=== PATIENT | male | born 1950 | race Caucasian/White ===

== ENCOUNTER 2017-04-24 18:45 | Inpatient (IN) | payer MEDICARE, MEDICAID ==
[~2017-04-24] VITALS: Ht 180.3 cm; Wt 54.4 kg
[2017-04-24] MEDS ORDERED: IV NORMAL SALINE 1000 ML BAG IV ONE (19:00)
--- NOTE | 2017-04-24 19:06 | NUR ---
Pt states takes medications for AIDS but he can not recall the names at this time.
--- NOTE | 2017-04-24 19:08 | NUR ---
Received ALOX4 with pt stating that he had sudden onset of SOB and brought in by paramedics on Non rebreather, placed on CR monitor, sl in lt ac 20g site without redness or swelling at this time VSS with pt very tachypenic. EKG complete at bedside, cxr at bedside as well.
--- NOTE | 2017-04-24 19:10 | NUR ---
REPORT TAKEN FROM DAY SHIFT RN. ASSUMING CARE AT THIS TIME.
[2017-04-24 19:20] LABS: ABG BASE EXCESS -0.7 mmol/L; ABG HCO3 21.4 mmol/L; ABG PCO2 25.5 mmHg (35.0-45.0); ABG PH 7.541 (7.350-7.450); ABG PO2 86.4 mmHg (75.0-100.0); ABG SITE RIGHT RADIAL; ABG TOTAL HEMOGLOBIN 7.8 G/dL (13.5-18.0); COHb 1.6 % (0.5-1.5); MetHb 0.4 % (0.0-1.5); O2Hb 95.1 % (94.0-97.0); VENT MODE R/A
[2017-04-24 19:42] LABS: BASOPHILS # (AUTO) 0.1 K/uL (0.0-8.0); BASOPHILS % (AUTO) 0.9 % (0.0-2.0); CREATININE 1.4 mg/dL (0.6-1.3); EOSINOPHILS % (AUTO) 0.5 % (0.0-7.0); HEMOGLOBIN 7.9 g/dL (12.5-16.3); LYMPHOCYTES # (AUTO) 2.3 K/uL (20.0-40.0); LYMPHOCYTES % (AUTO) 25.6 % (20.5-51.5); MEAN CORPUSCULAR HEMOGLOBIN 19.4 uug (23.8-33.4); MEAN CORPUSCULAR HGB CONC 32 g/dL (32.5-36.3); MEAN CORPUSCULAR VOLUME 61.2 fL (73.0-96.2); MONOCYTES # (AUTO) 0.7 K/uL (2.0-10.0); MONOCYTES % (AUTO) 7.9 % (0.0-11.0); NEUTROPHILS # (AUTO) 5.9 K/uL (1.8-8.9); NEUTROPHILS % (AUTO) 65.1 % (38.5-71.5); PLATELET COUNT (AUTO) 497 K/uL (152-348); RED BLOOD CELL COUNT(AUTO) 4.09 MIL/uL (4.06-5.63)
[2017-04-24 19:55] LABS: BILIRUBIN,DIRECT 0.1 mg/dL (0.0-0.2); BILIRUBIN,TOTAL 0.6 mg/dL (0.2-1.0)
--- NOTE | 2017-04-24 20:32 | NUR ---
PT RESTING IN A POSITION OF COMFORT. SO SIGNS OF DISTRESS NOTES. VSS.
[2017-04-24 21:16] LABS: *BILIRUBIN,URIN NEGATIVE (NEGATIVE); *BLOOD, URINE 1+ (NEGATIVE); *CLARITY,URINE SLIGHTLY CLOUDY (CLEAR); *COLOR,URINE YELLOW (YELLOW); *KETONES,URINE 1+ (NEGATIVE); *PROTEIN,URINE 1+ (NEGATIVE); *UROBILINOGEN,URINE 0.2 E.U./dl (NORMAL); LEUKOCYTE ESTERASE ,URINE 1+ (NEGATIVE); NITRITE, URINE NEGATIVE (NEGATIVE); UGLUCOSE NEGATIVE (NEGATIVE)
[2017-04-24 21:29] LABS: BACTERIA,URINE FEW /HPF (NONE SEEN); SQUAMOUS EPITHELIAL CELL,UR FEW /HPF (NONE SEEN); WBC,URINE 20-50 /HPF (0-3)
[2017-04-24] MEDS ORDERED: LORAZEPAM 0.5 MG TABLET PO ONE (21:30)
[2017-04-24] MEDS ORDERED: CEFTRIAXONE 1 G in IV DEXTROSE 5% 50 ML IV ONE (21:45)
--- NOTE | 2017-04-24 21:48 | NUR ---
PT USING URINAL. NO SIGNS OF DISTRESS AT THIS TIME.
[2017-04-24] MEDS ORDERED: CEFTRIAXONE 1 G VIAL ONE (22:15)
[2017-04-24] MEDS ORDERED: LORAZEPAM 1 MG TABLET ONE (22:15)
--- NOTE | 2017-04-24 22:29 | NUR ---
REPORT GIVEN TO ALONA WALTER.
--- NOTE | 2017-04-24 22:59 | NUR ---
Pt. admitted to tele, under care of Dr. Menjivar Belongs List completed
--- NOTE | 2017-04-24 23:00 | NUR ---
NEW ADMIT FROM ER, ALERT AND ORIENTED WITH CONFUSION, DENIES PAIN OR ANY DISCOMFORT. NO RESP DISTRESS AT PRESENT. SAFETY MEASURES IN PLACE, CALL LIGHT WITHIN PATIENT'S REACH. WILL CONTINUE TO MONITOR PATIENT
[2017-04-24 23:35] VITALS: BP 119/79
[2017-04-25] VITALS (13 sets, daily range): BP systolic 91–120; BP diastolic 55–74
[2017-04-25] MEDS ORDERED: Z GUARD REMEDY PASTE 57 GM TUBE TOP PRN
[2017-04-25] MEDS ORDERED: ACETAMINOPHEN 325 MG TABLET PO PRN
[2017-04-25] MEDS ORDERED: ONDANSETRON 4 MG/2 ML VIAL IV PRN
[2017-04-25] MEDS: VANCOMYCIN IV 1,000 MG in IV DEXTROSE 5% 250 ML IV ONE (00:15)
[2017-04-25] MEDS: IV NS 1000 ML 1,000 ML IV PRN (00:41)
[2017-04-25] MEDS ORDERED: VANCOMYCIN 1000 MG VIAL ONE (01:19)
--- NOTE | 2017-04-25 06:27 | NUR ---
PATIENT SLEPT ON AND OFF THROUGHOUT THE NIGHT. CONTINUES TO BE HAVE EPISODES OF CONFUSION PULLED HIS IV OUT, NEW IV WAS STARTED. HE DENIES PAIN OR ANY DISCOMFORT. NO RESP DISTRESS OR SOB ON THIS SHIFT. SAFETY MEASURES IN PLACE, CALL LIGHT WITHIN PATIENT'S REACH
[2017-04-25 06:35] LABS: BASOPHILS # (AUTO) 0.1 K/uL (0.0-8.0); EOSINOPHILS # (AUTO) 0.1 K/uL (0.0-0.7); HEMATOCRIT 23.1 % (36.7-47.1); LYMPHOCYTES # (AUTO) 1.9 K/uL (20.0-40.0); MEAN CORPUSCULAR HGB CONC 31 g/dL (32.5-36.3); NEUTROPHILS # (AUTO) 4.3 K/uL (1.8-8.9); WHITE BLOOD COUNT (AUTO) 7.4 K/uL (3.6-10.2)
[2017-04-25 06:36] LABS: BASOPHILS % (AUTO) 0.8 % (0.0-2.0); EOSINOPHILS % (AUTO) 1.8 % (0.0-7.0); LYMPHOCYTES % (AUTO) 25.6 % (20.5-51.5); MEAN CORPUSCULAR HEMOGLOBIN 19.2 uug (23.8-33.4); MEAN CORPUSCULAR VOLUME 61.7 fL (73.0-96.2); MONOCYTES % (AUTO) 13.6 % (0.0-11.0); NEUTROPHILS % (AUTO) 58.2 % (38.5-71.5); PLATELET COUNT (AUTO) 411 K/uL (152-348); RED BLOOD CELL COUNT(AUTO) 3.74 MIL/uL (4.06-5.63)
[2017-04-25 06:53] LABS: BILIRUBIN,TOTAL 0.3 mg/dL (0.2-1.0); CREATININE 1.1 mg/dL (0.6-1.3); MAGNESIUM 2.1 mg/dL (1.8-2.4); PHOSPHOROUS 3.9 mg/dL (2.5-4.9); POTASSIUM 3.9 mmol/L (3.5-5.1); TOTAL PROTEIN, SERUM 7.1 g/dL (6.4-8.2)
[2017-04-25 06:55] LABS: HEMOGLOBIN 7.2 g/dL (12.5-16.3)
[2017-04-25 07:03] LABS: THYROID STIMULATING HORMONE 4.257 mIU/mL (0.358-3.740)
[2017-04-25 07:50] LABS: BAND % (MANUAL) 2 % (0-10); EOSINOPHILS % (MANUAL) 3 % (0-8); LYMPHOCYTES % (MANUAL) 24 % (20-40); MONOCYTES % (MANUAL) 13 % (2-10); NEUTROPHILS % (MANUAL) 58 % (42-75)
--- NOTE | 2017-04-25 15:21 | NUR ---
Clinical Pharmacy Note: Vancomycin Pharmacy to Dose Subjective: To start vancomycin in this 67 y/o male for indication of PNA Objective: weight 54 kg height 180cm BUN 23 Scr 1.1 wbc 7.4 temp 98.9 vanco 1gm given in ER on 04/25 @ 0015 Assessment/Plan As renal fxn appears ok, will start regimen of vanco 750mg q19hrs for estimated trough of 16.19. First dose tonight at 2100. Will check trough before 4th scheduled dose (not ordered yet). Will monitor and dose per level if renal function were to become unstable. Will follow
[2017-04-25] MEDS ORDERED: DEXTROSE 50% 50 ML DISP.SYRIN IV PRN (16:15)
[2017-04-25] MEDS: INSULIN REGULAR, HUMAN 300 UNIT/3 ML VIAL SQ PRN (17:28)
[2017-04-25] MEDS: BLOOD SUGAR DIAGNOSTIC 1 EACH STRIP VI SCH ×2 (17:31→20:31)
--- NOTE | 2017-04-25 19:09 | NUR ---
pt A/Ox4. Denies any pain or discomfort. Denies any SOB. Lung sound clear. pt was given PRBC with no complications.
--- NOTE | 2017-04-25 20:00 | NUR ---
PATIENT IS AWAKE IN BED, HE DENIES PAIN OR ANY DISCOMFORT. NO RESP DISTRESS AT PRESENT. ALL SAFETY MEASURES IN PLACE, CALL LIGHT WITHIN PATIENT REACH. WILL CONTINUE TO MONITOR PATIENT
[2017-04-25] MEDS: CEFTRIAXONE 1 G in IV NORMAL SALINE 50 ML IV SCH (20:22)
[2017-04-25] MEDS: TAMSULOSIN HCL 0.4 MG CAP.SR.24H PO SCH (20:22)
[2017-04-25] MEDS ORDERED: VANCOMYCIN IV 750 MG in IV DEXTROSE 5% 250 ML IV SCH (21:00)
[2017-04-26] VITALS: BP 95/56
[2017-04-26] MEDS: IV NS 1000 ML 1,000 ML IV PRN ×2 (01:47→22:43)
[2017-04-26 04:00] VITALS: BP 104/69
--- NOTE | 2017-04-26 05:47 | NUR ---
PATIENT SLEPT WELL MOST OF THE NIGHT, ONE PRN TYLENOL WAS GIVEN WITH EFFECT ON THIS SHIFT. NO FURTHER COMPLAINTS OF PAIN. NO RESP DISTRESS ON THIS SHIFT. SAFETY MEASURES MAINTAINED, CALL LIGHT WITHIN PATIENT'S REACH
[2017-04-26 06:13] LABS: CREATININE 0.9 mg/dL (0.6-1.3); POTASSIUM 3.9 mmol/L (3.5-5.1)
[2017-04-26 06:32] LABS: BASOPHILS # (AUTO) 0.1 K/uL (0.0-8.0); BASOPHILS % (AUTO) 1.2 % (0.0-2.0); EOSINOPHILS # (AUTO) 0.2 K/uL (0.0-0.7); EOSINOPHILS % (AUTO) 2.4 % (0.0-7.0); HEMATOCRIT 26.8 % (36.7-47.1); HEMOGLOBIN 8.7 g/dL (12.5-16.3); LYMPHOCYTES # (AUTO) 1.8 K/uL (20.0-40.0); MEAN CORPUSCULAR HEMOGLOBIN 20.7 uug (23.8-33.4); MEAN CORPUSCULAR HGB CONC 32 g/dL (32.5-36.3); MEAN CORPUSCULAR VOLUME 63.9 fL (73.0-96.2); MONOCYTES # (AUTO) 0.9 K/uL (2.0-10.0); MONOCYTES % (AUTO) 13.2 % (0.0-11.0); NEUTROPHILS # (AUTO) 3.8 K/uL (1.8-8.9); NEUTROPHILS % (AUTO) 56.2 % (38.5-71.5); PLATELET COUNT (AUTO) 384 K/uL (152-348); RED BLOOD CELL COUNT(AUTO) 4.19 MIL/uL (4.06-5.63); WHITE BLOOD COUNT (AUTO) 6.8 K/uL (3.6-10.2)
[2017-04-26] MEDS: BLOOD SUGAR DIAGNOSTIC 1 EACH STRIP VI SCH ×4 (06:43→20:35)
[2017-04-26 08:18] LABS: EOSINOPHILS % (MANUAL) 3 % (0-8); LYMPHOCYTES % (MANUAL) 22 % (20-40); MONOCYTES % (MANUAL) 17 % (2-10); NEUTROPHILS % (MANUAL) 58 % (42-75)
[2017-04-26] MEDS ORDERED: ALPR1TAB7 PO (10:30)
[2017-04-26 11:14] VITALS: BP 98/64
--- NOTE | 2017-04-26 14:58 | NUR ---
Clinical Pharmacy Note: Vancomycin Pharmacy to Dose Subjective: To continue vancomycin in this 67 y/o male for indication of PNA Objective: weight 54 kg height 180cm BUN 19 Scr 0.9 wbc 6.8 temp 98.4 Assessment/Plan Since renal function is improved, will change order to 1 gram IV every 18hrs(first dose today at 1600).Will check trough before 4th scheduled dose (not ordered yet) for expected trough around 16. Will monitor and dose per level if renal function were to become unstable. Will follow
[2017-04-26 15:03] VITALS: BP 110/68
[2017-04-26] MEDS ORDERED: ALPR0.5T8 PO (15:25)
[2017-04-26] MEDS ORDERED: QUET100T PO (15:27)
[2017-04-26] MEDS: VANCOMYCIN IV 1 G in PREMIXED 0 EACH IV SCH (16:18)
[2017-04-26] MEDS: ALPRAZOLAM 0.5 MG TABLET PO PRN (16:22)
--- NOTE | 2017-04-26 17:00 | NUR ---
Xanax effective. pt calm and relax.
--- NOTE | 2017-04-26 19:50 | NUR ---
NSG: PT RECEIVED A/O X 4. NO ACUTE DISTRESS NOTED. PT IS HYPERVERBAL BUT COOPERATIVE AND PLEASANT. DENIES DISCOMFORT. CONT TO MONITOR.
[2017-04-26 20:00] VITALS: BP 115/76
[2017-04-26] MEDS: CEFTRIAXONE 1 G in IV NORMAL SALINE 50 ML IV SCH (20:27)
[2017-04-26] MEDS: TAMSULOSIN HCL 0.4 MG CAP.SR.24H PO SCH (20:27)
[2017-04-26] MEDS ORDERED: QUETIAPINE FUMARATE 100 MG TABLET PO SCH (21:00)
[2017-04-27] VITALS: BP 120/75
--- NOTE | 2017-04-27 01:59 | NUR ---
vasquezg: pt endorsed to JOSE ANGEL howell.
[2017-04-27 05:00] VITALS: BP 112/75
[2017-04-27 05:32] LABS: CORTISOL 15.4 ug/dL (.)
--- NOTE | 2017-04-27 05:55 | NUR ---
No changes t/o shift. Slept most of the time. No c/o pain. No acute distress noted. IVF infusing. Safety and comfort measures maintained t/o shift.
[2017-04-27 06:31] LABS: BASOPHILS % (AUTO) 0.8 % (0.0-2.0); EOSINOPHILS # (AUTO) 0.1 K/uL (0.0-0.7); EOSINOPHILS % (AUTO) 1.8 % (0.0-7.0); HEMATOCRIT 29.1 % (36.7-47.1); HEMOGLOBIN 9.2 g/dL (12.5-16.3); LYMPHOCYTES # (AUTO) 1.7 K/uL (20.0-40.0); LYMPHOCYTES % (AUTO) 27.4 % (20.5-51.5); MEAN CORPUSCULAR HGB CONC 31 g/dL (32.5-36.3); MEAN CORPUSCULAR VOLUME 63.7 fL (73.0-96.2); MONOCYTES % (AUTO) 15.3 % (0.0-11.0); NEUTROPHILS # (AUTO) 3.5 K/uL (1.8-8.9); NEUTROPHILS % (AUTO) 54.7 % (38.5-71.5); PLATELET COUNT (AUTO) 396 K/uL (152-348); RED BLOOD CELL COUNT(AUTO) 4.58 MIL/uL (4.06-5.63); WHITE BLOOD COUNT (AUTO) 6.4 K/uL (3.6-10.2)
[2017-04-27] MEDS: BLOOD SUGAR DIAGNOSTIC 1 EACH STRIP VI SCH ×3 (06:44→16:56)
[2017-04-27 06:52] LABS: MAGNESIUM 2.1 mg/dL (1.8-2.4); POTASSIUM 4.1 mmol/L (3.5-5.1)
[2017-04-27 08:43] LABS: BAND % (MANUAL) 2 % (0-10); EOSINOPHILS % (MANUAL) 1 % (0-8); LYMPHOCYTES % (MANUAL) 29 % (20-40); MONOCYTES % (MANUAL) 6 % (2-10); NEUTROPHILS % (MANUAL) 62 % (42-75)
[2017-04-27] MEDS: VANCOMYCIN IV 1 G in PREMIXED 0 EACH IV SCH (10:40)
[2017-04-27] MEDS: INSULIN REGULAR, HUMAN 300 UNIT/3 ML VIAL SQ PRN (11:44)
[2017-04-27 11:51] VITALS: BP 101/63
[2017-04-27] MEDS: ALPRAZOLAM 0.5 MG TABLET PO PRN (12:20)
--- NOTE | 2017-04-27 12:20 | NUR ---
PT COMPLAINED OF MILD ANXIETY. GIVEN ALPRAZOLAM PER ORDER.
--- NOTE | 2017-04-27 12:38 | NUR ---
Clinical Pharmacy Note: Vancomycin Pharmacy to Dose Subjective: To continue vancomycin in this 67 y/o male for indication of PNA Objective: weight 54 kg height 180cm BUN 13 Scr 1.0 wbc 6.4 temp 98 Assessment/Plan Will continue same dose of Vancomycin 1 gram IV every 18hrs(third dose tomorrow at 0400).Will check trough before 4th scheduled dose (not ordered yet) for expected trough around 16. Will monitor and dose per level if renal function were to become unstable. Will follow
[2017-04-27] MEDS ORDERED: BACITRACIN/POLYMYXIN B OINT 15 GM TUBE TOP SCH (14:00)
--- NOTE | 2017-04-27 14:01 | NUR ---
WOUND CARE CONSULT: PT PRESENTS WITH LEFT BUTTOCK OPEN BLISTER, PRESENT ON ADMISSION. RECOMMENDATIONS MADE FOR WOUND CARE AFTER DISCUSSING WITH GILLIAN BENAVIDEZ NP. ALL SKIN PROTECTION AND WOUND RECOMMENDATIONS DISCUSSED WITH NURSING STAFF. PT IS INDEPENDENT WITH BED MOBILITY AND CONTINENT FOR THE MOST PART. WILL SEE PRN. NIEVES IN AGREEMENT WITH PLAN OF CARE. Addendum: 04/27/17 at 1403 by LOLA ROCKWELL RN Amended: Links added.
[2017-04-27 15:43] VITALS: BP 98/68
--- NOTE | 2017-04-27 17:30 | NUR ---
dISCHARGE INSTRUCTIONS GIVEN TO PT. pT VERBALIZED UNDERSTANDING. pT IS IN NO ACUTE DISTRESS. iv D/C. vACCINES TO BE F/U WITH pmd.
[2017-04-28 05:06] LABS: *BASOS 0 % (Not Estab.); *EOS 2 % (Not Estab.); *EOS ABSOLUTE 0.1 x10E3/uL (0.0-0.4); *HCT 27.5 % (37.5-51.0); *HGB 8.7 g/dL (13.0-17.7); *IMMATURE GRANULOCYTES 0 % (Not Estab.); *LYMPHOCYTES 34 % (Not Estab.); *LYMPHOCYTES ABSOLUTE 1.6 x10E3/uL (0.7-3.1); *MCH 20.2 pg (26.6-33.0); *MCHC 31.6 g/dL (31.5-35.7); *MCV 64 fL (79-97); *MONOCYTES 13 % (Not Estab.); *MONOCYTES ABSOLUTE 0.6 x10E3/uL (0.1-0.9); *NEUTROPHILS 51 % (Not Estab.); *NEUTROPHILS ABSOLUTE 2.5 x10E3/uL (1.4-7.0); *PLT 362 x10E3/uL (150-379); *RBC 4.31 x10E6/uL (4.14-5.80); *RDW 18.6 % (12.3-15.4); *WBC 4.8 x10E3/uL (3.4-10.8)
[2017-04-28 09:06] LABS: *VITAMIN D 25-OH VIT D 54 ng/mL (.); *VITAMIN D 25-OH, D2 <1.0 ng/mL (.); *VITAMIN D 25-OH, D3 53 ng/mL (.)
[2017-04-28 09:06] LABS: *IMMUNOGLOBULIN G, SERUM 2056 mg/dL (700-1600); IMMUNOGLOBULIN A, SERUM 243 mg/dL (61-437); IMMUNOGLOBULIN M, SERUM 76 mg/dL (20-172)
[2017-04-29 05:24] LABS: A/G RATIO 0.8 (0.7-1.7); ALPHA-1-GLOBULIN 0.3 g/dL (0.0-0.4); BETA GLOBULIN 0.8 g/dL (0.7-1.3); GAMMA GLOBULIN 1.8 g/dL (0.4-1.8); GLOBULIN, TOTAL 3.9 g/dL (2.2-3.9); M-SPIKE Not Observed g/dL (Not Observed)
[2017-04-29 13:08] LABS: *HEMOGLOBIN A 94.9 % (96.4-98.8); *HEMOGLOBIN A2 4.6 % (1.8-3.2); *HEMOGLOBIN F 0.5 % (0.0-2.0)
== END 2017-04-27 17:40 | disposition home or self-care (01) | DRG 811 ==
LOC: ER 18:47 → TELE 22:41
PROVIDERS: ADMIT Nurse Practitioner Acute Care; ATTEND Nurse Practitioner Acute Care
PROC: 30233N1 Transfusion of Nonautologous Red Blood Cells into Peripheral Vein, Percutaneous Approach (ICD-10-PCS; principal; 2017-04-25)
DX: D56.3 Thalassemia minor (principal); I50.33 Acute on chronic diastolic (congestive) heart failure; E43 Unspecified severe protein-calorie malnutrition; B20 Human immunodeficiency virus [HIV] disease; Z68.1 Body mass index [BMI] 19.9 or less, adult; D63.8 Anemia in other chronic diseases classified elsewhere; E11.65 Type 2 diabetes mellitus with hyperglycemia; E02 Subclinical iodine-deficiency hypothyroidism; N40.0 Benign prostatic hyperplasia without lower urinary tract symptoms; Z66 Do not resuscitate; F41.9 Anxiety disorder, unspecified; G73.7 Myopathy in diseases classified elsewhere; R06.03 Acute respiratory distress; R09.02 Hypoxemia
CPT/HCPCS: 36415; 36600; 70030-TC; 71045; 82533; 82746; 82784; 83021; 83550; 83605; 83690; 83735; 84100; 84155; 84165; 84443; 85025; 85660; 85730; 86334; 86361; 86850; 86900; 86901; 86920; 87040; 87086; 87400; 87536; 93005; 93307; A4663; J0696; J1815; J3370; J3490; J7030; J7050; J7060; P9016-BL; P9021